=== PATIENT | female | born 1960 | race Caucasian/White ===

== ENCOUNTER → 2017-11-26 | Outpatient (CLI) | payer OTHER ==
[~2017-11-26] MED LIST: CLARITIN10 MG PO; FLEXERIL PO; HYDROCODONE-AP1 EAC6 PO; IBUPROFEN 400400 M1 PO; PRILOSEC 20 MG20 MG PO; PROAIR HFA8.5 GM INH; SYMBICORT160 MCG/4. INH; ULTRAM 50MG TAB50 MG PO
== END ==
LOC: ULTRA 16:33
DX: M79.89 Other specified soft tissue disorders (principal); K59.00 Constipation, unspecified; R63.4 Abnormal weight loss; R10.84 Generalized abdominal pain